=== PATIENT | male | born 1950 | race Caucasian/White ===

== ENCOUNTER 2017-07-03 12:59 | Outpatient (CLI) | payer MEDICARE, BC ==
[2017-07-03 14:22] LABS: BASOPHILS % (AUTO) 0.3 % (0.0-2.0); EOSINOPHILS # (AUTO) 0.2 /CMM (0.0-0.7); EOSINOPHILS % (AUTO) 1.6 % (0.0-6.0); HEMATOCRIT 47 % (39-51); HEMOGLOBIN 15.4 g/dL (13.5-17.5); LYMPHOCYTES % (AUTO) 27.9 % (20.0-44.0); MEAN CORPUSCULAR HEMOGLOBIN 32 PG (26.0-33.0); MEAN CORPUSCULAR HGB CONC 33 g/dl (31.0-36.0); MEAN CORPUSCULAR VOLUME 98 fL (80-96); MONOCYTES # (AUTO) 1.4 /CMM (0.1-1.30); MONOCYTES % (AUTO) 12.9 % (2.0-12.0); NEUTROPHILS # (AUTO) 6.1 /CMM (1.8-8.9); NEUTROPHILS % (AUTO) 57.3 % (43.0-81.0); PLATELET COUNT (AUTO) 279 /CMM (150-450); RED BLOOD CELL COUNT(AUTO) 4.78 MIL/uL (4.5-6.0); WHITE BLOOD COUNT (AUTO) 10.7 K/uL (4.3-11.0)
[2017-07-03 14:40] LABS: ALBUMIN 3.8 g/dL (3.4-5.0); BILIRUBIN,TOTAL 0.2 mg/dL (0.2-1.0); CALCIUM, SERUM 10.7 mg/dL (8.5-10.1); CREATININE 1.2 mg/dL (0.6-1.3); POTASSIUM 4.2 mmol/L (3.5-5.1); TOTAL PROTEIN, SERUM 6.9 g/dL (6.4-8.2)
== END 2017-07-03 23:59 | disposition home or self-care (01) ==
LOC: EDBD 12:59 → LAB 12:59
DX: M16.0 Bilateral primary osteoarthritis of hip (principal); M79.1 Myalgia
CPT/HCPCS: 36415; 73521; 80053-TC; 82550-TC; 85025-TC; 86140-TC

== ENCOUNTER 2017-07-10 12:38 | Outpatient (CLI) | payer MEDICARE, BC ==
[2017-07-11 11:22] LABS: CALCIUM, IONIZED 5.8 mg/dL (4.5-5.6)
== END 2017-07-10 23:59 | disposition home or self-care (01) ==
LOC: LAB 12:38
DX: E21.3 Hyperparathyroidism, unspecified (principal)
CPT/HCPCS: 36415; 82330; 83970

== ENCOUNTER 2017-10-30 14:04 | Outpatient (CLI) | payer MEDICARE, BC ==
[2017-10-30 15:20] LABS: CALCIUM, SERUM 9.1 mg/dL (8.5-10.1); CREATININE 1.2 mg/dL (0.6-1.3); POTASSIUM 4.5 mmol/L (3.5-5.1)
== END 2017-10-30 23:59 | disposition home or self-care (01) ==
LOC: LAB 14:04
DX: E21.3 Hyperparathyroidism, unspecified (principal); M60.9 Myositis, unspecified
CPT/HCPCS: 36415; 80048-TC; 82330

== ENCOUNTER 2018-01-24 13:17 | Outpatient (CLI) | payer MEDICARE, BC ==
[2018-01-24 15:22] LABS: ALBUMIN 3.9 g/dL (3.4-5.0); BILIRUBIN,TOTAL 0.4 mg/dL (0.2-1.0); CALCIUM, SERUM 8.7 mg/dL (8.5-10.1); CREATININE 1.2 mg/dL (0.6-1.3); POTASSIUM 3.8 mmol/L (3.5-5.1); TOTAL PROTEIN, SERUM 7.4 g/dL (6.4-8.2)
[2018-01-24 15:31] LABS: THYROID STIMULATING HORMONE 0.92 uIU/mL (0.358-3.74)
[2018-01-24 15:38] LABS: C-REACTIVE PROTEIN 1.7 mg/dL (0.0-0.9)
== END 2018-01-24 23:59 | disposition home or self-care (01) ==
LOC: LAB 13:17
DX: M06.9 Rheumatoid arthritis, unspecified (principal); M79.1 Myalgia; R53.83 Other fatigue
CPT/HCPCS: 36415; 80053-TC; 82550-TC; 84443-TC; 85652-TC; 86140-TC

== ENCOUNTER 2018-12-08 15:06 | Outpatient (CLI) | payer MEDICARE, BC ==
[2018-12-08 16:23] LABS: FREE PSA 0.27 ng/mL (0.00-45); PROSTATE SPECIFIC ANTIGEN SCR 1.5 ng/mL (0.00-4.00)
== END 2018-12-08 23:59 | disposition home or self-care (01) ==
LOC: LAB 15:06
DX: R97.20 Elevated prostate specific antigen [PSA] (principal)
CPT/HCPCS: 36415; 84153-TC; 84154-TC

== ENCOUNTER 2020-03-21 10:07 | Outpatient (CLI) | payer MEDICARE, BC ==
[2020-03-21 10:51] LABS: BASOPHILS # (AUTO) 0.1 /CMM (0.0-0.2); EOSINOPHILS % (AUTO) 2.9 % (0.0-6.0); HEMATOCRIT 45 % (39-51); HEMOGLOBIN 15.2 g/dL (13.5-17.5); LYMPHOCYTES # (AUTO) 2.5 /CMM (0.8-4.8); LYMPHOCYTES % (AUTO) 37.7 % (20.0-44.0); MEAN CORPUSCULAR HGB CONC 34 g/dl (31.0-36.0); MEAN CORPUSCULAR VOLUME 97 fL (80-96); MONOCYTES # (AUTO) 0.8 /CMM (0.1-1.30); MONOCYTES % (AUTO) 12.1 % (2.0-12.0); NEUTROPHILS % (AUTO) 46.3 % (43.0-81.0); PLATELET COUNT (AUTO) 238 /CMM (150-450); RED BLOOD CELL COUNT(AUTO) 4.62 MIL/uL (4.5-6.0); WHITE BLOOD COUNT (AUTO) 6.5 K/uL (4.3-11.0)
[2020-03-21 11:21] LABS: ALANINE AMINOTRANSFERASE 42 U/L (12-78); ALKALINE PHOSPHATASE 56 U/L (46-116); ASPARTATE AMINOTRANSFERASE 27 U/L (15-37); BILIRUBIN,TOTAL 0.4 mg/dL (0.2-1.0); CALCIUM, SERUM 9.4 mg/dL (8.5-10.1); CARBON DIOXIDE 28 mmol/L (21-32); CHLORIDE 104 mmol/L (98-107); CREATININE 1.4 mg/dL (0.6-1.3); GLUCOSE 85 mg/dL (74-106); POTASSIUM 3.8 mmol/L (3.5-5.1); SODIUM SERUM 141 mmol/L (136-145); TOTAL PROTEIN, SERUM 7.3 g/dL (6.4-8.2); UREA NITROGEN, BLOOD 33 mg/dL (7-18)
[2020-03-21 11:37] LABS: CHOLESTEROL 191 mg/dL (<200); HDL CHOLESTEROL 56 mg/dL (40-60); LDL 121 mg/dL (0-99); TRIGLYCERIDES 117 mg/dL (30-150)
== END 2020-03-21 23:59 | disposition home or self-care (01) ==
LOC: LAB 10:07
DX: R53.83 Other fatigue (principal)
CPT/HCPCS: 36415; 80053-TC; 80061-TC; 84443-TC; 85025-TC

== ENCOUNTER 2020-09-29 10:11 | Outpatient (CLI) | payer MEDICARE, BC | END 2020-09-29 23:59 | disposition home or self-care (01) | LOC: MRI 10:11 | DX: S83.91XA Sprain of unspecified site of right knee, initial encounter (principal); S83.92XA Sprain of unspecified site of left knee, initial encounter; M17.0 Bilateral primary osteoarthritis of knee; K57.30 Diverticulosis of large intestine without perforation or abscess without bleeding; X58.XXXA Exposure to other specified factors, initial encounter; Y93.89 Activity, other specified; Y92.89 Other specified places as the place of occurrence of the external cause; Y99.8 Other external cause status | CPT/HCPCS: 73721-TC ==